=== PATIENT | male | born 1985 | race Two or more races ===

== ENCOUNTER → 2022-01-25 | Day surgery (SDC) | payer BC ==
[~2022-01-25] VITALS: Ht 177.8 cm; Wt 72.1 kg
[~2022-01-25] MED LIST: DexAMETHasone SOD PHOS 10MG/1ML VIAL INJ ONE; GLYCOPYRROLATE 0.2 MG/ML 1ML VIAL ONE; HYDROmorphone HCL 2 MG/ML VL IV PRN; HYDROmorphone HCL 2 MG/ML VL ONE; KETOROLAC TROMETH 30 MG/ML 1ML VIAL ONE; LIDOCAINE 2% (LOCAL ANESTH.) PF 5ml SDV ONE; MIDAZOLAM HCL 2MG/2ML 2ml VIAL (1mg/ml) ONE; ONDANSETRON HCL 4 MG/2 ML VIAL IV PRN; ONDANSETRON HCL 4 MG/2 ML VIAL ONE; PROPOFOL 10 MG/ML 20 ML IV ONE; ceFAZolin 1GM/50ML 100 ML IV ONE; fentaNYL CITRATE 100 MCG/2 ML VL ONE
[2022-01-25 14:10] VITALS: BP 129/72
== END | disposition home or self-care (01) ==
LOC: SUR 09:56
PROVIDERS: ATTEND Orthopaedic Surgery
DX: S82.52XA Displaced fracture of medial malleolus of left tibia, initial encounter for closed fracture (principal); F17.200 Nicotine dependence, unspecified, uncomplicated; Z98.890 Other specified postprocedural states; Z79.899 Other long term (current) drug therapy; Z20.822 Contact with and (suspected) exposure to COVID-19; V89.2XXA Person injured in unspecified motor-vehicle accident, traffic, initial encounter; X58.XXXA Exposure to other specified factors, initial encounter; Y93.89 Activity, other specified; Y92.89 Other specified places as the place of occurrence of the external cause; Y99.8 Other external cause status
CPT/HCPCS: 27766; 73600; C1713; C1769; J0690; J1100; J1170; J1885; J2001; J2250; J2405; J2704; J3010; U0003; 76000

== ENCOUNTER 2024-06-10 17:48 | Inpatient (IN) | payer BC ==
[~2024-06-10] VITALS: Ht 177.8 cm; Wt 70.5 kg
[2024-06-10] MEDS ORDERED: ONDANSETRON HCL 4 MG/2 ML VIAL IM ONE (18:30)
[2024-06-10] MEDS ORDERED: MORPHINE SULFATE 4 MG/ML SYR/VIAL IM ONE (18:30)
[2024-06-10 18:42] LABS: Basophils # (auto) 0 10 ^3/uL (0-0.2); Basophils % (auto) 0.1 % (0.0-2.0); Eosinophils # (auto) 0 10 ^3/uL (0-0.8); Hematocrit 45.7 % (41.0-53.0); Hemoglobin 16.2 g/dL (13.5-17.5); Lymphocytes # (auto) 1.5 10 ^3/uL (0.4-5.4); Lymphocytes % (auto) 6.3 % (10.0-50.0); Mean Corpuscular Hgb Conc. 35.3 g/dL (32.0-36.0); Mean Corpuscular Volume 90.6 fL (80.0-100.0); Monocytes # (auto) 1.5 10 ^3/uL (0-1.3); Neutrophils # (auto) 21.4 10 ^3/uL (1.6-8.6); Neutrophils % (auto) 87.6 % (37.0-80.0); Platelet Count (auto) 281 10^3/uL (140-450); Red Blood Cells 5.05 10^6/uL (4.5-5.90); Red Cell Distribution Width 12.9 % (11.8-14.3); White Blood Cell 24.4 10^3/uL (4.4-10.8)
[2024-06-10 19:02] LABS: Alanine Aminotransferase 13 U/L (7-40); Alkaline Phosphatase 65 U/L (46-116); Anion Gap 6 (5-15); Aspartate Aminotransferase < 8 U/L (13-40); BUN/Creatinine Ratio 8.3 (10.0-20.0); Blood Urea Nitrogen 8 mg/dL (9-23); Calcium 10.3 mg/dL (8.7-10.4); Carbon Dioxide 26 mmol/L (20-30); Chloride 106 mmol/L (98-107); Glucose 113 mg/dL (74-106); Potassium 3.8 mmol/L (3.5-5.1); Sodium 138 mmol/L (136-145)
[2024-06-10 19:03] LABS: Albumin 4.8 g/dL (3.2-4.8); Bilirubin, Total 1.2 mg/dL (0.2-1.0); Total Protein 7.3 g/dL (5.7-8.2)
[2024-06-10 19:34] LABS: INR 1.08 (0.9-1.15); Partial Thromboplastin Time 27.5 SEC (24.5-34.5); Prothrombin Time 11.4 sec (9.3-11.8)
[2024-06-10] MEDS: PIPERACILLIN-TAZOB 3.375GM 100 ML IV ONE (20:13)
[2024-06-10] MEDS: ONDANSETRON HCL 4 MG/2 ML VIAL IV ONE (20:14)
[2024-06-10 20:15] VITALS: PULSE 80; RESP 16; O2SAT 100
[2024-06-10] MEDS: MORPHINE SULFATE 4 MG/ML SYR/VIAL IV ONE (20:15)
[2024-06-10] MEDS: SODIUM CHLORIDE 0.9% 1,000 ML IV SCH ×2 (20:40→23:50)
[2024-06-10] MEDS: SODIUM CHLORIDE 0.9% 1,000 ML IV ONE (20:40)
[2024-06-10] MEDS ORDERED: NITROGLYCERIN 0.4 MG SL TAB SL PRN (22:15)
[2024-06-10] MEDS ORDERED: DOCUSATE SOD 100 MG CAP PO PRN (22:15)
[2024-06-10] MEDS: ONDANSETRON HCL 4 MG/2 ML VIAL IV PRN (22:43)
[2024-06-10] MEDS: MORPHINE SULFATE INJ 2 MG/ml SYRG IV PRN (22:44)
[2024-06-10 23:57] LABS: Urine Bacteria None Seen /hpf (None Seen)
[2024-06-11] VITALS (9 sets, daily range): BP systolic 96–138; BP diastolic 44–64; PULSE 63–100; RESP 17–18; TEMP 97.7–100.6; O2SAT 95–100
[2024-06-11 00:19] LABS: Urine Blood Negative /uL (Negative); Urine Clarity Clear (Clear); Urine Color Yellow (Yellow); Urine Mucus FEW (None Seen); Urine Protein, UAD TRACE (Negative); Urine Specific Gravity 1.034 (1.001-1.035); Urine Urobilinogen Normal (Negative); Urine WBC 1 /hpf (0 - 3); Urine pH 7.5 (5.0-9.0)
[2024-06-11] MEDS: ACETAMINOPHEN 325 MG TAB PO PRN (02:09)
[2024-06-11 05:49] LABS: Basophils # (auto) 0 10 ^3/uL (0-0.2); Basophils % (auto) 0.1 % (0.0-2.0); Eosinophils # (auto) 0 10 ^3/uL (0-0.8); Eosinophils % (auto) 0.1 % (0.0-7.0); Hematocrit 41.1 % (41.0-53.0); Hemoglobin 14.2 g/dL (13.5-17.5); Lymphocytes # (auto) 2.2 10 ^3/uL (0.4-5.4); Lymphocytes % (auto) 10.1 % (10.0-50.0); Mean Corpuscular Hemoglobin 31.8 pg (28.0-32.0); Mean Corpuscular Hgb Conc. 34.6 g/dL (32.0-36.0); Mean Corpuscular Volume 91.9 fL (80.0-100.0); Monocytes # (auto) 1.7 10 ^3/uL (0-1.3); Monocytes % (auto) 7.8 % (0.0-12.0); Neutrophils # (auto) 17.8 10 ^3/uL (1.6-8.6); Neutrophils % (auto) 81.9 % (37.0-80.0); Platelet Count (auto) 235 10^3/uL (140-450); Red Blood Cells 4.47 10^6/uL (4.5-5.90); Red Cell Distribution Width 12.9 % (11.8-14.3); White Blood Cell 21.7 10^3/uL (4.4-10.8)
[2024-06-11] MEDS: PIPERACILLIN-TAZOB 3.375GM 100 ML IV SCH (05:54)
[2024-06-11 06:00] LABS: Calcium 9.3 mg/dL (8.7-10.4); Chloride 104 mmol/L (98-107); Potassium 3.9 mmol/L (3.5-5.1); Sodium 139 mmol/L (136-145)
[2024-06-11 06:01] LABS: Anion Gap 9 (5-15); Carbon Dioxide 26 mmol/L (20-30)
[2024-06-11 06:06] LABS: BUN/Creatinine Ratio 9.4 (10.0-20.0); Blood Urea Nitrogen 9 mg/dL (9-23); Glucose 103 mg/dL (74-106)
[2024-06-11] MEDS: LIDOCAINE W/ EPINEPHRINE 1% 20ML VIAL ONE (12:57)
[2024-06-11] MEDS: BUPIVACAINE 0.25% INJ 50ML VIAL ONE (12:57)
[2024-06-11] MEDS: ceFAZolin 2 GM/D5W50ml 50 ML IV ONE (13:08)
[2024-06-11] MEDS: SUCCINYLCHOLINE CHLORIDE 20 MG/ML 10ML VIAL IV ONE (13:19)
[2024-06-11] MEDS ORDERED: PROPOFOL 10 MG/ML 20 ML IV ONE (13:21)
[2024-06-11] MEDS ORDERED: fentaNYL CITRATE 100 MCG/2 ML VL ONE (13:21)
[2024-06-11] MEDS ORDERED: MEPERIDINE HCL (50 MG/ML) 1 ML VIAL ONE ×2 (13:55→14:38)
[2024-06-11] MEDS ORDERED: ROCURONIUM 10MG/ML 10ML VIAL IV ONE (13:55)
[2024-06-11] MEDS ORDERED: DexAMETHasone SOD PHOS 10MG/1ML VIAL INJ ONE (13:56)
[2024-06-11] MEDS ORDERED: ONDANSETRON HCL 4 MG/2 ML VIAL ONE (13:56)
[2024-06-11] MEDS: LIDOCAINE 1%-Mpf/Epinephrine 1:200,000 30ml VIAL IJ ONE (14:35)
[2024-06-11] MEDS ORDERED: SUGAMMADEX 200mg/2ml Vial (100MG/ML) IV ONE (14:37)
[2024-06-11] MEDS ORDERED: MEPERIDINE HCL (25 MG/ML) 1ML VIAL IV PRN (15:00)
[2024-06-11] MEDS: ONDANSETRON HCL 4 MG/2 ML VIAL IV ONE (15:00)
[2024-06-11] MEDS: HYDROmorphone HCL 2 MG/ML VL/or syr IV PRN (15:29)
[2024-06-11] MEDS: HYDROmorphone HCL 2 MG/ML VL/or syr ONE (15:29)
[2024-06-11] MEDS: MORPHINE SULFATE INJ 2 MG/ml SYRG IV PRN (20:33)
[2024-06-12 01:00] VITALS: BP 100/60; PULSE 61; RESP 18; TEMP 98; O2SAT 100
[2024-06-12 05:00] VITALS: BP 113/66; PULSE 59; RESP 18; TEMP 97.7; O2SAT 100
[2024-06-12] MEDS: MORPHINE SULFATE INJ 2 MG/ml SYRG IV PRN (05:26)
[2024-06-12 06:50] LABS: Basophils # (auto) 0 10 ^3/uL (0-0.2); Eosinophils # (auto) 0 10 ^3/uL (0-0.8); Hematocrit 36.5 % (41.0-53.0); Hemoglobin 12.9 g/dL (13.5-17.5); Lymphocytes # (auto) 0.9 10 ^3/uL (0.4-5.4); Lymphocytes % (auto) 5.7 % (10.0-50.0); Mean Corpuscular Hgb Conc. 35.4 g/dL (32.0-36.0); Mean Corpuscular Volume 90.5 fL (80.0-100.0); Monocytes # (auto) 1.1 10 ^3/uL (0-1.3); Monocytes % (auto) 6.6 % (0.0-12.0); Neutrophils # (auto) 14.4 10 ^3/uL (1.6-8.6); Neutrophils % (auto) 87.7 % (37.0-80.0); Nucleated Red Blood Cells % 0.1 %; Platelet Count (auto) 204 10^3/uL (140-450); Red Blood Cells 4.04 10^6/uL (4.5-5.90); Red Cell Distribution Width 12.8 % (11.8-14.3); White Blood Cell 16.5 10^3/uL (4.4-10.8)
[2024-06-12 06:55] LABS: Anion Gap 5 (5-15); Calcium 9.4 mg/dL (8.7-10.4); Carbon Dioxide 28 mmol/L (20-30); Chloride 104 mmol/L (98-107); Potassium 3.8 mmol/L (3.5-5.1); Sodium 137 mmol/L (136-145)
[2024-06-12 07:02] LABS: BUN/Creatinine Ratio 10.8 (10.0-20.0); Blood Urea Nitrogen 8 mg/dL (9-23); Glucose 103 mg/dL (74-106)
[2024-06-12 08:00] VITALS: PULSE 68; RESP 20; O2SAT 97
[2024-06-12 08:45] VITALS: BP 117/67; PULSE 68; RESP 20; TEMP 98.1; O2SAT 97
[2024-06-12 12:35] VITALS: BP 109/62; PULSE 62; RESP 20; TEMP 98.2; O2SAT 97
[2024-06-12] MEDS ORDERED: AUG875T PO (14:53)
[2024-06-12 15:23] VITALS: BP 109/62; PULSE 62; RESP 20; TEMP 98.2; O2SAT 97
== END 2024-06-12 16:00 | disposition home or self-care (01) | DRG 399 ==
LOC: ER 17:48 → OVERFLOW 22:07 → WEST WING 06-11 01:41
PROVIDERS: ADMIT Nurse Practitioner Family; ATTEND Internal Medicine
PROC: 0DTJ4ZZ Resection of Appendix, Percutaneous Endoscopic Approach (ICD-10-PCS; principal; 2024-06-11 13:45)
DX: K35.80 Unspecified acute appendicitis (principal); F17.210 Nicotine dependence, cigarettes, uncomplicated; K66.0 Peritoneal adhesions (postprocedural) (postinfection); Z79.899 Other long term (current) drug therapy
CPT/HCPCS: 36415; 71045; 74176; 80048; 80053; 81001; 83605; 85025; 85610; 85730; 86850; 86900; 86901; G0378; J0330; J1100; J2405; J2543; J2704; J3490